=== PATIENT | female | born 1985 | race Caucasian/White ===

== ENCOUNTER 2017-06-20 20:38 | Emergency (ER) | payer MEDICAID ==
--- NOTE | 2017-06-20 21:38 | ED Physician Chart ---
ED Chief Complaint/HPI - Patient Information Date Seen:: 06/20/17 Time Seen:: 21:05 Chief Complaint:: Headache for 6 months History of Present Illness:: Brought in by private auto for the above reason. Pt is Romanian speaking. Interpretation is provided by her cousin Ely Gloria. Pt has had intermittent frontal headache for 6 months. Pt has had recurrent bifrontal headache since this morning. Pt has had nasal congestion. No fever. No visual changes in terms or blurry vision or diplopia. No weakness or numbness. No mentation change. No ataxia. Transient nausea with vomiting earlier with vomitus consists of gastric content. No hematemesis. Pt has not taken any analgesic today. Allergies:: Allergies Allergy/AdvReac Type Severity Reaction Status Date / Time No Known Allergies Allergy Verified 06/20/17 21:05 Vitals:: Vital Signs - 8 hr 06/20/17 20:45 Temp 97.2 F HR 82 RR 18 BP 130/81 O2 Sat % 98 Historian:: Patient Family MD/PCP:: unknown LMP:: 06/19/17 Review:: Nurse's Note Reviewed ED Review of Systems - Review of Systems General/Constitutional: No fever, No chills, No weight loss, No weakness, No edema, No loss of appetite Skin: No rash, No bruising Head: Headache, No light-headedness Eyes: No loss of vision, No pain, No diplopia ENT: No earache, Nasal drainage, No sore throat Neck: No neck pain, No swelling, No thyromegaly, No stiffness, No mass noted Cardio Vascular: No chest pain, No palpitations, No edema Pulmonary: No SOB, No cough, No wheezing GI: Nausea, Vomiting (transient), No diarrhea, No pain G/U: No dysuria, No frequency, No hematuria 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, No abnormal vaginal bleed Musculoskeletal: No bone or joint pain Endocrine: No polyuria, No polydipsia Psychiatric: No prior psych history Hematopoietic: No bruising, No lymphadenopathy Allergic/Immuno: No urticaria, No angioedema Neurological: No syncope, No focal symptoms, No weakness, No paresthesia, Headache, No seizure, No dizziness, No confusion, No vertigo ED Past Medical History - Past Medical History Past Medical History: No significant medical hx Family History: None Social History: Non Smoker, Alcohol (rare use), No Drug Use, Legally, Other (lives with her children) Employment:: unemployed. Surgical History: Cholecystectomy (Laparoscopic cholecystectomy about 6 y/a), C- section (x 4 with last one '13) Psychiatricy History: None Medication: Reviewed Family Medical History - Family Member Mother History Unknown: Yes Ethnicity: Hx Family Cancer: No Hx Family Coronary Artery Disease: No ED Physical Exam - Physical Examination General/Constitutional: Awake, Well-developed, well-nourished, Alert, No distress, GCS 15, Non-toxic appearing, Ambulatory Other Gen/Cons comments:: Breathes comfortably, speaks clearly, interacts normally, and ambulates without difficulty. Head: Atraumatic Other Head comments:: Tenderness to percussion at frontal sinus regions. Eyes: Lids, conjuctiva normal, PERRL, EOMI Other Eyes comments:: Fundi: flat disks. Skin: Nl inspection, No ecchymosis, Well hydrated, No lymphadenopathy ENMT: TM canals nl, Lips, teeth, gums nl, Oropharynx nl Other ENMT comments:: Trace light yellow nasal discharge and postnasal drip noticed. Neck: Nontender, Full ROM w/o pain, No nuchal rigidity, No mass, No stridor Respiratory: Nl effort/Exclusion, Clear to Auscultation, No Wheeze/Rhonchi/Rales Cardio Vascular: RRR, No murmur, gallop, rubs GI: No tenderness/rebounding/guarding, No organomegaly, Normal BS's, Nondistended, No mass/bruits Other GI comments:: Abdomen is soft. Extremities: No tenderness or effusion, Full ROM, No edema Neuro/Psych: Alert/oriented (oriented x 3), DTR's symmetric, Normal sensory exam , Normal motor strength, Judgement/insight normal, Mood normal, Normal gait, No focal deficits Other Neuro/Psych comments:: CN II to XII are grossly intact. Cerebellar exam (F to N, MAGALI): normal ED Septic Shock - . Is Septic Shock (SBP<90, OR Lactate>4 mmol\L) present?: No - <6hrs of presentation: Vital Signs: Vital Signs - 8 hr 06/20/ 20:45 Temp 97.2 F HR 82 RR 18 BP 130/81 O2 Sat % 98 ED Reassessment (Disposition) - Reassessment Reassessment:: 2328 Pt overall feels much better and is comfortable. No N/V. Pt requests to go home now and does not want further observation/management in hospital. Aftercare instructions have been given with interpretation by Licha lambert. Reassessment Condition:: Improved - Diagnosis Diagnosis:: Acute frontal sinusitis. Stable. - Aftercare/Follow up Instructions Aftercare/Follow-Up Instructions:: Refer to Discharge Instructions Notes:: Bedrest for today. Pt may take Sudafed as directed. Motrin 200 mg tab 3 tabs po q8h prn pain. Headache instructions given. F/U with Dr. Curiel or PCP of pt's choice in one day for recheck. Return to ER immediately if condition worsens or if any further questions/problems. Medication Prescribed:: Bactrim DS one tab po q12h for 14 days. D-28 R-0 - Patient Disposition Discharge/Transfer:: Home Time:: 23:35 Condition at Disposition:: Stable, Improved ED Discharge Plan - Patient Disposition Admit/Discharge/Transfer: PT DISCHARGED HOME Prescriptions: Sulfamethoxazole/TMP [Bactrim Ds] 1 tab PO BID #14 tab Instructions: Sinusitis, [id number] Additional Instructions: FOLLOW UP WITH YOUR DOCTOR IN 2-3 DAYS AND TO COME BACK TO ER IF SYMPTOMS WORSEN. TAKE YOUR MEDICATIONS PRESCRIBED
[2017-06-20] MEDS ORDERED: Sulfamethoxazole/TMP 800/160mg Tab ONE (22:20)
[2017-06-20] MEDS: Sulfamethoxazole/TMP 800/160mg Tab PO ONE (22:22)
== END 2017-06-20 23:45 | disposition home or self-care (01) ==
LOC: ER 20:38
DX: J01.10 Acute frontal sinusitis, unspecified (principal)
CPT/HCPCS: 81025-TC; Z7502; Z7610

== ENCOUNTER 2017-08-03 17:54 | Emergency (ER) | payer MEDICAID | END 2017-08-03 19:30 | disposition left against medical advice (07) | LOC: ER 17:54 | DX: R51 Headache (principal) ==

== ENCOUNTER 2017-09-10 18:10 | Emergency (ER) | payer MEDICAID ==
--- NOTE | 2017-09-10 18:37 | ED Physician Chart ---
ED Chief Complaint/HPI - Patient Information Date Seen:: 09/10/17 Time Seen:: 18:32 Chief Complaint:: Sore throat, headache and vomiting History of Present Illness:: 32 yo female developed sore throat, headache, body ache and vomiting for 2 days. Diarrhea for 1 day. Allergies:: Allergies Allergy/AdvReac Type Severity Reaction Status Date / Time No Known Allergies Allergy Verified 06/20/17 21:05 Vitals:: Vital Signs - 8 hr 09/10/17 18:16 Temp 98.1 F HR 93 RR 17 BP 126/78 O2 Sat % 100 ED Review of Systems - Review of Systems General/Constitutional: No fever, Chills Skin: No rash Head: Headache Eyes: No pain ENT: Sore throat Neck: Neck pain Cardio Vascular: No chest pain Pulmonary: No SOB, Cough GI: Nausea, Vomiting, Diarrhea Musculoskeletal: Muscle pain ED Past Medical History - Past Medical History Past Medical History: No significant medical hx, Other () Social History: Non Smoker, No Alcohol, No Drug Use Surgical History: Cholecystectomy, (x 4) Family Medical History - Family Member Mother History Unknown: Yes Ethnicity: Living Status: Unknown Hx Family Cancer: No Hx Family Coronary Artery Disease: No ED Physical Exam - Physical Examination General/Constitutional: Awake Eyes: PERRL Skin: No ecchymosis Other ENMT comments:: oropharyngeal erythema Other Neck comments:: Left upper anterior neck tender lymph nodes Cardio Vascular: RRR, No murmur, gallop, rubs, NL S1 S2 GI: No tenderness/rebounding/guarding Extremities: normal strength in all extremities Neuro/Psych: No focal deficits ED Assessment - Assessment General Assessment: URI Normocytic anemia Hyponatremia Assessment/Comments:: CBC, CMP CXR NS 1L IV bolus DuoNeb Cepacol lozenge Robitussin Toradol Tylenol D/c home F/u PCP or return to ER if symptoms worsen ED Septic Shock - . Is Septic Shock (SBP<90, OR Lactate>4 mmol\L) present?: No - <6hrs of presentation: Vital Signs: Vital Signs - 8 hr 09/10/17 18:16 Temp 98.1 F HR 93 RR 17 BP 126/78 O2 Sat % 100 ED Reassessment (Disposition) - Reassessment Reassessment Condition:: Improved - Patient Disposition Discharge/Transfer:: Home ED Discharge Plan - Patient Disposition Admit/Discharge/Transfer: PT DISCHARGED HOME Condition at Disposition: Stable Prescriptions: Guaifenesin DM [Robitussin DM] 10 ml PO Q6H PRN #120 ml PRN Reason: Cough Or Congestion Instructions: Upper Respiratory Infection, Adult, [id number] Additional Instructions: MAKE A FOLLOW UP WITH PRIMARY MEDICAL DOCTOR DELIA, COMPLY WITH PRESCRIBED MEDICINE, GO BACK TO EMERGENCY ROOM IF SYMPTOMS WORSEN.
[2017-09-10 19:06] LABS: % EOSINOPHILS 2.1 % (0.0-5.0); % LYMPHOCYTES 12.9 % (20.0-50.0); % MONOCYTES 12.7 % (2.0-10.0); % NEUTROPHILS 72.3 % (40.0-80.0); EOSINOPHILE ABSOLUTE 0.1 Th/cmm (0.1-0.4); HEMATOCRIT 35.8 % (41.0-60); HEMOGLOBIN 11.9 gm/dL (12-16); LYMPHOCYTE ABSOLUTE 0.9 Th/cmm (1.5-3.0); MEAN CELL VOLUME 82.8 fl (81-100); MEAN CORPUSCULAR HEMOGLOBIN 27.4 pg (27.0-31.0); MEAN CORPUSCULAR HGB CONC 33.1 pg (28.0-36.0); MEAN PLATELET VOLUME 8.2 fl; MONOCYTE ABSOLUTE 0.9 Th/cmm (0.3-1.0); NEUTROPHILE ABSOLUTE 5.1 Th/cmm (1.8-8.0); PLATELET COUNT 277 Th/cmm (150-400); RED BLOOD COUNT 4.32 Mil/cmm (3.80-5.10); RED CELL DISTRIBUTION WIDTH 15.9 % (11.5-20.0)
[2017-09-10 19:23] LABS: ALB/GLOB RATIO 1.3 (1.0-1.8); ALBUMIN 4.4 gm/dL (3.7-5.3); ALKALINE PHOSPHATASE 55 U/L (34-104); ANION GAP 10.1 (7.0-16.0); BILIRUBIN,TOTAL 0.4 mg/dL (0.3-1.0); BUN - UREA NITROGEN 16 mg/dL (7-25); CALCIUM SERUM 9.6 mg/dL (8.6-10.3); CARBON DIOXIDE 24.8 mEq/L (21.0-31.0); CHLORIDE 104 mEq/L (98-107); CREATININE - SERUM 0.6 mg/dL (0.6-1.2); GFR AFRICAN-AMERICAN > 60.0 ml/min (>90); GFR NON AFRICAN-AMERICAN > 60.0 ml/min; GLUCOSE 78 mg/dL (70-105); POTASSIUM SERUM 3.9 mEq/L (3.5-5.1); SGOT 29 U/L (13-39); SGPT/ALT 17 U/L (7-52); SODIUM SERUM 135 mEq/L (136-145); TOTAL PROTEIN,SERUM 7.7 gm/dL (6.0-8.3)
[2017-09-10 20:41] LABS: INF A SCREEN NEG FOR INF A; INF B SCREEN NEG FOR INF B
[2017-09-10] MEDS ORDERED: Sodium Chloride 0.9% 1,000 ML IV ONE (20:44)
[2017-09-10] MEDS ORDERED: Albuterol/Ipratropium Neb 3 ML AERS HHN ONE ×2 (20:54→21:21)
[2017-09-10] MEDS ORDERED: Guaifenesin DM 10 ML UDC PO PRN (23:05)
== END 2017-09-10 23:25 | disposition home or self-care (01) ==
LOC: ER 18:10
DX: J02.9 Acute pharyngitis, unspecified (principal)
CPT/HCPCS: 99284; 96372; 94640; 36415; 87804 ×2; 85025; 81025; 80053; J1885; J7030; Z7502; Z7610

== ENCOUNTER 2018-03-08 23:26 | Emergency (ER) | payer MEDICAID ==
--- NOTE | 2018-03-09 00:51 | ED Physician Chart ---
ED Chief Complaint/HPI - Patient Information Date Seen:: 03/09/18 Time Seen:: 00:50 Chief Complaint:: Headache, dizziness and chest discomfort History of Present Illness:: 32 yo female had first episode of headache and dizziness, mouth tremor, and left chest pain lasting for 8 min around 4pm today. Patient then developed second episode of similar symptoms two hours later. Patient had heavy menstrual periods during past 3 months with each period lasting for about 3 days with significant bleeding on first day. Previously, her periods had only lasted for 1 day. At ER, patient did not have mouth tremor or chest pain. She did have headache. 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 Musculoskeletal: No bone or joint pain Neurological: No focal symptoms ED Past Medical History - Past Medical History Past Medical History: No significant medical hx Social History: No Alcohol Surgical History: Cholecystectomy, (x 4) Family Medical History - Family Member Mother History Unknown: Yes Ethnicity: Living Status: Unknown Hx Family Cancer: No Hx Family Coronary Artery Disease: No ED Physical Exam - Physical Examination General/Constitutional: Awake Head: Atraumatic Eyes: PERRL Skin: No skin lesions ENMT: Nasal exam nl, Oropharynx nl Neck: No nuchal rigidity Respiratory: Clear to Auscultation Cardio Vascular: RRR, No murmur, gallop, rubs, NL S1 S2 GI: No tenderness/rebounding/guarding Extremities: normal strength in all extremities Neuro/Psych: No focal deficits ED Labs/Radiology/EKG Results - Lab Results Results: Laboratory Last Values WBC 8.7 Th/cmm (4.8-10.8) 03/09/18 01:00 RBC 4.11 Mil/cmm (3.80-5.10) 03/09/18 01:00 Hgb 11.1 gm/dL (12-16) L 03/09/18 01:00 Hct 33.2 % (41.0-60) L 03/09/18 01:00 MCV 80.9 fl (81-100) L 03/09/18 01:00 MCH 27.0 pg (27.0-31.0) 03/09/18 01:00 MCHC Differential 33.3 pg (28.0-36.0) 03/09/18 01:00 RDW 16.5 % (11.5-20.0) 03/09/18 01:00 Plt Count 311 Th/cmm (150-400) 03/09/18 01:00 MPV 8.4 fl 03/09/18 01:00 Neutrophils % 61.9 % (40.0-80.0) 03/09/18 01:00 Lymphocytes % 29.0 % (20.0-50.0) 03/09/18 01:00 Monocytes % 7.0 % (2.0-10.0) 03/09/18 01:00 Eosinophils % 1.6 % (0.0-5.0) 03/09/18 01:00 Basophils % 0.5 % (0.0-2.0) 03/09/18 01:00 Sodium 137 mEq/L (136-145) 03/09/18 01:00 Potassium 4.0 mEq/L (3.5-5.1) 03/09/18 01:00 Chloride 108 mEq/L (98-107) H 03/09/18 01:00 Carbon Dioxide 23.0 mEq/L (21.0-31.0) 03/09/18 01:00 Anion Gap 10.0 (7.0-16.0) 03/09/18 01:00 BUN 14 mg/dL (7-25) 03/09/18 01:00 Creatinine 0.7 mg/dL (0.6-1.2) 03/09/18 01:00 Est GFR ( Amer) > 60.0 ml/min (>90) 03/09/18 01:00 Est GFR (Non-Af Amer) > 60.0 ml/min 03/09/18 01:00 BUN/Creatinine Ratio 20.0 03/09/18 01:00 Glucose 96 mg/dL (70-105) 03/09/18 01:00 Calcium 9.0 mg/dL (8.6-10.3) 03/09/18 01:00 Total Bilirubin 0.5 mg/dL (0.3-1.0) 03/09/18 01:00 AST 14 U/L (13-39) 03/09/18 01:00 ALT 10 U/L (7-52) 03/09/18 01:00 Alkaline Phosphatase 51 U/L (34-104) 03/09/18 01:00 Troponin I < 0.01 ng/mL (0.01-0.05) L 03/09/18 01:00 B-Natriuretic Peptide 17.2 pg/mL (5.0-100.0) 03/09/18 01:00 Total Protein 7.0 gm/dL (6.0-8.3) 03/09/18 01:00 Albumin 3.9 gm/dL (3.7-5.3) 03/09/18 01:00 Globulin 3.1 gm/dL 03/09/18 01:00 Albumin/Globulin Ratio 1.3 (1.0-1.8) 03/09/18 01:00 Urine Source RANDOM 03/09/18 00:00 Urine Color YELLOW 03/09/18 00:00 Urine Clarity HAZY (CLEAR) 03/09/18 00:00 Urine pH 6.0 (4.6 - 8.0) 03/09/18 00:00 Ur Specific [place] >= 1.030 (1.005-1.030) 03/09/18 00:00 Urine Protein TRACE mg/dL (NEGATIVE) 03/09/18 00:00 Urine Glucose (UA) NEGATIVE mg/dL (NEGATIVE) 03/09/18 00:00 Urine Ketones NEGATIVE mg/dL (NEGATIVE) 03/09/18 00:00 Urine Blood TRACE (NEGATIVE) 03/09/18 00:00 Urine Nitrate NEGATIVE (NEGATIVE) 03/09/18 00:00 Urine Bilirubin NEGATIVE (NEGATIVE) 03/09/18 00:00 Urine Urobilinogen 0.2 E.U./dL (0.2 - 1.0) 03/09/18 00:00 Ur Leukocyte Esterase NEGATIVE (NEGATIVE) 03/09/18 00:00 Urine RBC 0-2 /hpf (0-5) 03/09/18 00:00 Urine WBC 2-5 /hpf (0-5) 03/09/18 00:00 Ur Epithelial Cells FEW /lpf (FEW) 03/09/18 00:00 Urine Bacteria OCCASIONAL /hpf (NONE SEEN) 03/09/18 00:00 Urine Test NEGATIVE 03/09/18 00:00 - Radiology Results Results: CXR: no acute cardiopulmonary disease - EKG Interpretations EKG Time:: 01:01 Rate & Rhythm: 53 bpm, Sinus rhythm [place]: normal P axis Intervals: ND 136, QRS 88 ED Assessment - Assessment General Assessment: Headache Microcytic anemia Menorrhagia Assessment/Comments:: CBC, CMP, Trop I, BNP, UA CXR, EKG Tylenol D/c home Iron supplement 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 Is Septic Shock (SBP<90, OR Lactate>4 mmol\L) present?: No - <6hrs of presentation: Vital Signs: Vital Signs - 8 hr 03/08/18 23:35 Temp 98.4 F HR 63 RR 18 BP 119/83 O2 Sat % 100 ED Reassessment (Disposition) - Reassessment Reassessment Condition:: Improved - Patient Disposition Discharge/Transfer:: Home
[2018-03-09 01:09] LABS: % BASOPHILS 0.5 % (0.0-2.0); % EOSINOPHILS 1.6 % (0.0-5.0); % NEUTROPHILS 61.9 % (40.0-80.0); EOSINOPHILE ABSOLUTE 0.1 Th/cmm (0.1-0.4); HEMATOCRIT 33.2 % (41.0-60); HEMOGLOBIN 11.1 gm/dL (12-16); LYMPHOCYTE ABSOLUTE 2.5 Th/cmm (1.5-3.0); MEAN CELL VOLUME 80.9 fl (81-100); MEAN CORPUSCULAR HGB CONC 33.3 pg (28.0-36.0); MEAN PLATELET VOLUME 8.4 fl; MONOCYTE ABSOLUTE 0.6 Th/cmm (0.3-1.0); NEUTROPHILE ABSOLUTE 5.5 Th/cmm (1.8-8.0); PLATELET COUNT 311 Th/cmm (150-400); RED BLOOD COUNT 4.11 Mil/cmm (3.80-5.10); RED CELL DISTRIBUTION WIDTH 16.5 % (11.5-20.0); WHITE BLOOD COUNT 8.7 Th/cmm (4.8-10.8)
[2018-03-09 01:15] LABS: URINE SOURCE RANDOM
[2018-03-09 01:17] LABS: URINE BILIRUBIN NEGATIVE (NEGATIVE); URINE BLOOD TRACE (NEGATIVE); URINE GLUCOSE (UA) NEGATIVE (NEGATIVE); URINE KETONE NEGATIVE (NEGATIVE); URINE LEUKOCYTE ESTERASE NEGATIVE (NEGATIVE); URINE MICROSCOPIC INDICATED? YES; URINE NITRATE NEGATIVE (NEGATIVE); URINE PROTEIN TRACE mg/dL (NEGATIVE); URINE UROBILINOGEN 0.2 E.U./dL (0.2 - 1.0)
[2018-03-09 01:27] LABS: URINE CLARITY HAZY (CLEAR); URINE COLOR YELLOW
[2018-03-09 01:28] LABS: ALB/GLOB RATIO 1.3 (1.0-1.8); ALBUMIN 3.9 gm/dL (3.7-5.3); ALKALINE PHOSPHATASE 51 U/L (34-104); BILIRUBIN,TOTAL 0.5 mg/dL (0.3-1.0); BUN - UREA NITROGEN 14 mg/dL (7-25); CHLORIDE 108 mEq/L (98-107); CREATININE - SERUM 0.7 mg/dL (0.6-1.2); GFR AFRICAN-AMERICAN > 60.0 ml/min (>90); GFR NON AFRICAN-AMERICAN > 60.0 ml/min; GLUCOSE 96 mg/dL (70-105); SGOT 14 U/L (13-39); SGPT/ALT 10 U/L (7-52); SODIUM SERUM 137 mEq/L (136-145)
[2018-03-09 01:28] LABS: URINE BACTERIA OCCASIONAL /hpf (NONE SEEN); URINE EPITHELIAL CELLS FEW /lpf (FEW); URINE RBC 0-2 /hpf (0-5)
--- NOTE | 2018-03-09 08:36 | Diagnostic Imaging Report ---
CHEST X-RAY: AP view INDICATION: pain COMPARISON: 02/29/2016 FINDINGS: There is no focal consolidation or pleural effusions The heart is normal in size. The osseous structures demonstrate no acute abnormalities. IMPRESSION: No acute cardiopulmonary disease.
== END 2018-03-09 02:30 | disposition home or self-care (01) ==
LOC: ER 23:26
DX: D50.9 Iron deficiency anemia, unspecified (principal); N92.0 Excessive and frequent menstruation with regular cycle; R07.89 Other chest pain; R51 Headache; Z90.49 Acquired absence of other specified parts of digestive tract; Z98.890 Other specified postprocedural states
CPT/HCPCS: 36415-UA; 71045-TC; 80053-TC; 81001-TC; 81025-TC; 83880-TC; 84484-TC; 85025-TC; 93005; Z7610

== ENCOUNTER 2018-09-30 19:15 | Emergency (ER) | payer MEDICAID ==
--- NOTE | 2018-09-30 20:28 | ED Physician Chart ---
ED Chief Complaint/HPI - Patient Information Date Seen:: 09/30/18 Time Seen:: 20:23 Chief Complaint:: abd pain History of Present Illness:: 33 yr old female with lower abd pain and dysuria and pain at the csection scar Allergies:: Allergies Allergy/AdvReac Type Severity Reaction Status Date / Time No Known Allergies Allergy Verified 03/08/18 23:51 Vitals:: Vital Signs - 8 hr 09/30/18 19:30 Temp 98.4 F HR 55 RR 16 BP 116/66 O2 Sat % 99 ED Review of Systems - Review of Systems General/Constitutional: No fever, No chills, No weight loss, No weakness, No diaphoresis, No edema, No loss of appetite Skin: No skin lesions, No rash, No bruising Head: No headache, No light-headedness Eyes: No loss of vision, No pain, No diplopia ENT: No earache, No nasal drainage, No sore throat, No tinnitus Neck: No neck pain, No swelling, No thyromegaly, No stiffness, No mass noted Cardio Vascular: No chest pain, No palpitations, No PND, No orthopnea, No edema Pulmonary: No SOB, No cough, No sputum, No wheezing GI: No nausea, No vomiting, No diarrhea, No pain, No melena, No hematochezia, No constipation, No hematemesis G/U: Dysuria Musculoskeletal: No bone or joint pain, No back pain, No muscle pain Endocrine: No polyuria, No polydipsia Psychiatric: No prior psych history, No depression, No anxiety, No suicidal ideation Hematopoietic: No bruising, No lymphadenopathy Allergic/Immuno: No urticaria, No angioedema Neurological: No syncope, No focal symptoms, No weakness, No paresthesia, No headache, No seizure, No dizziness, No confusion, No vertigo ED Past Medical History - Past Medical History Obtainable: No Family Medical History - Family Member Mother History Unknown: Yes Ethnicity: Living Status: Unknown Hx Family Cancer: No Hx Family Coronary Artery Disease: No ED Physical Exam - Physical Examination General/Constitutional: Awake, Well-developed, well-nourished, Alert, No distress, GCS 15, Non-toxic appearing, Ambulatory Head: Atraumatic Eyes: Lids, conjuctiva normal, PERRL, EOMI Skin: Nl inspection, No rash, No skin lesions, No ecchymosis, Well hydrated, No lymphadenopathy ENMT: External ears, nose nl, Nasal exam nl, Lips, teeth, gums nl Neck: Nontender, Full ROM w/o pain, No JVD, No nuchal rigidity, No bruit, No mass, No stridor Respiratory: Nl effort/Exclusion, Clear to Auscultation, No Wheeze/Rhonchi/Rales Cardio Vascular: RRR, No murmur, gallop, rubs, NL S1 S2 GI: No tenderness/rebounding/guarding, No organomegaly, No hernia, Normal BS's, Nondistended, No mass/bruits, No McBurney tenderness : No CVA tenderness Extremities: No tenderness or effusion, Full ROM, normal strength in all extremities, No edema, Normal digits & nails Neuro/Psych: Alert/oriented, DTR's symmetric, Normal sensory exam, Normal motor strength, Judgement/insight normal, Mood normal, Normal gait, No focal deficits Misc: Normal back, No paraspinal tenderness ED Assessment - Assessment General Assessment: abd pain dysuria ED Septic Shock - . Is Septic Shock (SBP<90, OR Lactate>4 mmol\L) present?: No - <6hrs of presentation: Vital Signs: Vital Signs - 8 hr 09/30/18 19:30 Temp 98.4 F HR 55 RR 16 BP 116/66 O2 Sat % 99 ED Reassessment (Disposition) - Reassessment Reassessment:: dysuia abd pain - Diagnosis Diagnosis:: abd pain dysuria - Aftercare/Follow up Instructions Aftercare/Follow-Up Instructions:: Counseled pt regarding lab results/diagnosis & need follow up - Patient Disposition Discharge/Transfer:: Home Condition at Disposition:: Stable
[2018-09-30 20:38] LABS: % BASOPHILS 1.1 % (0.0-2.0); % EOSINOPHILS 1.9 % (0.0-5.0); % LYMPHOCYTES 25.2 % (20.0-50.0); % MONOCYTES 7.9 % (2.0-10.0); % NEUTROPHILS 63.9 % (40.0-80.0); BASOPHILE ABSOLUTE 0.1 Th/cumm (0-0.2); EOSINOPHILE ABSOLUTE 0.2 Th/cmm (0.1-0.4); HEMATOCRIT 35.5 % (41.0-60); HEMOGLOBIN 11.7 gm/dL (12-16); LYMPHOCYTE ABSOLUTE 2.3 Th/cmm (1.5-3.0); MEAN CORPUSCULAR HEMOGLOBIN 27.8 pg (27.0-31.0); MEAN CORPUSCULAR HGB CONC 33.1 pg (28.0-36.0); MEAN PLATELET VOLUME 9.4 fl; MONOCYTE ABSOLUTE 0.7 Th/cmm (0.3-1.0); NEUTROPHILE ABSOLUTE 5.7 Th/cmm (1.8-8.0); PLATELET COUNT 246 Th/cmm (150-400); RED BLOOD COUNT 4.22 Mil/cmm (3.80-5.10); RED CELL DISTRIBUTION WIDTH 15.9 % (11.5-20.0)
[2018-09-30 20:52] LABS: ALB/GLOB RATIO 1.4 (1.0-1.8); ALBUMIN 4.1 gm/dL (3.7-5.3); ALKALINE PHOSPHATASE 48 U/L (34-104); BILIRUBIN,TOTAL 0.4 mg/dL (0.3-1.0); BUN - UREA NITROGEN 10 mg/dL (7-25); CALCIUM SERUM 9.2 mg/dL (8.6-10.3); CARBON DIOXIDE 24.1 mEq/L (21.0-31.0); CHLORIDE 105 mEq/L (98-107); CREATININE - SERUM 0.6 mg/dL (0.6-1.2); GFR AFRICAN-AMERICAN > 60.0 ml/min (>90); GFR NON AFRICAN-AMERICAN > 60.0 ml/min; GLUCOSE 101 mg/dL (70-105); POTASSIUM SERUM 4.1 mEq/L (3.5-5.1); SGOT 13 U/L (13-39); SGPT/ALT 6 U/L (7-52); SODIUM SERUM 136 mEq/L (136-145)
[2018-09-30 20:59] LABS: URINE SOURCE RANDOM
[2018-09-30 21:01] LABS: URINE BILIRUBIN NEGATIVE (NEGATIVE); URINE BLOOD NEGATIVE (NEGATIVE); URINE GLUCOSE (UA) NEGATIVE (NEGATIVE); URINE KETONE NEGATIVE (NEGATIVE); URINE LEUKOCYTE ESTERASE NEGATIVE (NEGATIVE); URINE NITRATE NEGATIVE (NEGATIVE); URINE PH 5.5 (4.6 - 8.0); URINE PROTEIN NEGATIVE (NEGATIVE); URINE UROBILINOGEN 0.2 E.U./dL (0.2 - 1.0)
[2018-09-30 21:04] LABS: URINE CLARITY CLEAR (CLEAR); URINE COLOR YELLOW; URINE MICROSCOPIC INDICATED? YES
[2018-09-30 21:07] LABS: URINE BACTERIA FEW /hpf (NONE SEEN); URINE EPITHELIAL CELLS MODERATE /lpf (FEW); URINE RBC 0-2 /hpf (0-5)
== END 2018-09-30 21:30 | disposition home or self-care (01) ==
LOC: ER 19:15
DX: R10.30 Lower abdominal pain, unspecified (principal); R30.0 Dysuria; Z98.890 Other specified postprocedural states
CPT/HCPCS: 36415-UA; 80053-TC; 81001-TC; 81025-TC; 85025-TC; Z7502